=== PATIENT | male | born 1980 | race American Indian/Alaskan Native ===

== ENCOUNTER 2022-12-08 14:07 | Emergency (ER) | payer MEDICAID, OTHER ==
[2022-12-08 14:30] VITALS: BP 137/92; PULSE 125
[2022-12-08] MEDS ORDERED: Sodium Chloride 0.9% 10 ML Syringe FLUSH PRN ×2 (14:35)
[2022-12-08] MEDS ORDERED: diphenhydrAMINE 50 MG/ML SDV IVPUSH ONE (14:40)
[2022-12-08] MEDS ORDERED: Sodium Chloride 0.9% 1,000 ML IV ONE ×2 (14:41→14:42)
[2022-12-08] MEDS ORDERED: Cefepime 2 GM Vial IVPUSH ONE (14:42)
[2022-12-08 15:36] LABS: ANION GAP 11.1 mEq/L (7-13)
[2022-12-08] MEDS ORDERED: Acetaminophen 500 MG Tab PO ONE (16:25)
[2022-12-08] MEDS ORDERED: Sodium Chloride 0.9% 1,000 ML IV SCH (16:30)
== END 2022-12-08 16:47 ==
LOC: DL.ED 14:07
DX: S61.551D Open bite of right wrist, subsequent encounter (principal); L08.9 Local infection of the skin and subcutaneous tissue, unspecified; M25.511 Pain in right shoulder; R73.9 Hyperglycemia, unspecified; R74.01 Elevation of levels of liver transaminase levels; A41.9 Sepsis, unspecified organism; R65.20 Severe sepsis without septic shock; K72.00 Acute and subacute hepatic failure without coma; W55.01XD Bitten by cat, subsequent encounter
CPT/HCPCS: 36415; 80053; 83605; 85025; 86140; 87040; 96365; 96375; 99284-25; 99285; A9270-GY; J0692; J1200; J3370; J3490; J7030; J7040

== ENCOUNTER 2022-12-14 20:28 | Emergency (ER) | payer MEDICAID ==
[2022-12-14] MEDS ORDERED: Acetaminophen 500 MG Tab PO ONE (20:48)
[2022-12-14 20:49] VITALS: BP 136/106; PULSE 98
== END 2022-12-14 21:04 | disposition home or self-care (01) ==
LOC: DL.ED 20:28
DX: G89.18 Other acute postprocedural pain (principal); M25.531 Pain in right wrist; Z98.890 Other specified postprocedural states
CPT/HCPCS: 99282; 99283; A9270

== ENCOUNTER 2023-06-07 17:50 | Emergency (ER) | payer MEDICAID ==
[2023-06-07 18:02] VITALS: BP 155/99; PULSE 60
[2023-06-07] MEDS ORDERED: Ketorolac 30 MG/ML SDV IM ONE (18:19)
[2023-06-07] MEDS ORDERED: Take Home: traMADol 50 MG, 4 Tab Pack PO ONE (18:19)
== END 2023-06-07 18:29 | disposition home or self-care (01) ==
LOC: DL.ED 17:50
DX: R07.81 Pleurodynia (principal); W10.9XXA Fall (on) (from) unspecified stairs and steps, initial encounter
CPT/HCPCS: 71100-RT; 96372; 99282; 99283; A9270-GY; J1885

== ENCOUNTER 2023-09-06 21:54 | Emergency (ER) | payer MEDICAID ==
[2023-09-06 22:57] VITALS: BP 148/98; PULSE 95
[2023-09-06] MEDS ORDERED: Acetaminophen 500 MG Tab PO ONE (23:00)
== END 2023-09-06 23:26 | disposition home or self-care (01) ==
LOC: DL.ED 21:54
DX: S42.032A Displaced fracture of lateral end of left clavicle, initial encounter for closed fracture (principal); Z86.16 Personal history of COVID-19; X58.XXXA Exposure to other specified factors, initial encounter
CPT/HCPCS: 73030-LT; 99282; 99283; A9270-GY

== ENCOUNTER 2025-04-29 23:04 | Inpatient (IN) | payer MEDICAID ==
[2025-04-29 23:03] LABS: PLATELET COUNT,PLT 281 10^3/uL (150-450); RED BLOOD CELL COUNT 4.77 10^6/uL (4.6-6.2); WHITE BLOOD CELL COUNT,WBC 6.5 10^3/uL (5.0-10.0)
[~2025-04-29 23:04] MED LIST: Sodium Chloride 0.9% 10 ML Syringe FLUSH PRN
[2025-04-29] MEDS: Iopamidol 612 MG/ML 100 ML Bottle IVPUSH ONE (23:06)
[2025-04-29 23:09] LABS: BASOPHILS PERCENT AUTO 0.5 % (0.0-1.0); EOSINOPHILS PERCENT AUTO 4.9 % (1.0-3.0); LYMPHOCYTES PERCENT AUTO 46.0 % (20.5-50.1); MONOCYTES PERCENT AUTO 3.8 % (2-8); NEUTROPHILS PERCENT AUTO 44.8 % (42.2-75.2)
[2025-04-29 23:15] LABS: A/G RATIO 0.9; ALANINE AMINOTRANSFERASE,ALT 112 U/L (16-63); ASPARTATE AMNIOTRANSFERASE,AST 156 U/L (15-37); BILIRUBIN TOTAL 0.2 mg/dL (0.2-1.0); BLOOD UREA NITROGEN,BUN 19 mg/dL (7-18); CARBON DIOXIDE,CO2 28 mmol/L (21-32); CHLORIDE,CL 106 mmol/L (98-107); CREATININE 1.03 mg/dL (0.70-1.30); GLUCOSE RANDOM 135 mg/dL (70-99); POTASSIUM,K 3.1 mmol/L (3.5-5.1); PROTEIN TOTAL,TP 7.8 g/dL (6.4-8.2); SODIUM,NA 146 mmol/L (136-145)
[2025-04-29 23:16] LABS: ESTIMATED GFR 93 mL/min (>=60); ETHANOL BLOOD MEDICAL 317 mg/dL (0)
[2025-04-29 23:21] LABS: INR 0.9 (0.9-1.2); PTT,PARTIAL THROMBOPLSTIN TIME 21.7 SEC (22.0-34.0)
[2025-04-29 23:37] LABS: BAND PERCENT MAN 4 %; EOSINOPHILS PERCENT MAN 4 % (1-3); LYMPHOCYTES PERCENT MAN 46 % (20-50); MONOCYTES PERCENT MAN 2 % (2-8); SEG NEUTROPHILS PERCENT MAN 44 % (42-75)
[2025-04-30] MEDS: Potassium Chloride 10 MEQ Tab.ER PO ONE (00:44)
[2025-04-30 02:45] LABS: APPEARANCE,URINE CLEAR (CLEAR); GLUCOSE,URINE NEGATIVE (NEGATIVE); OCCULT BLOOD,URINE LARGE (NEGATIVE)
[2025-04-30 02:46] LABS: AMPHETAMINES,URINE NEGATIVE (NEGATIVE); BARBITURATES,URINE NEGATIVE (NEGATIVE); MDMA (ECSTASY), URINE NEGATIVE (NEGATIVE); METHAMPHETAMINES,URINE NEGATIVE (NEGATIVE); OPIATES,URINE NEGATIVE (NEGATIVE); OXYCODONE,URINE NEGATIVE (NEGATIVE); PHENCYCLIDINE,URINE NEGATIVE (NEGATIVE); TCA,URINE NEGATIVE (NEGATIVE)
[2025-04-30] MEDS: Ketorolac 30 MG/ML SDV IVPUSH ONE (05:44)
[2025-04-30] MEDS: Lidocaine 1% with EPINEPHrine 1:100,000 20 ML MDV INJECT ONE (05:44)
[2025-04-30] MEDS: Take Home: Acetaminophen/oxyCODONE 325-5 MG, 5 Tab Pack PO ONE (05:44)
[2025-04-30] MEDS: Take Home: Cyclobenzaprine 10 MG Tab, 4 Tab Pack PO ONE (05:45)
[2025-04-30] MEDS ORDERED: Metoprolol Tartrate 5 MG/5 ML SDV IVPUSH PRN (06:24)
[2025-04-30] MEDS ORDERED: hydrALAZINE 20 MG/ML SDV IVPUSH PRN (06:24)
[2025-04-30] MEDS ORDERED: Ondansetron 4 MG/2 ML SDV IVPUSH PRN (06:28)
[2025-04-30] MEDS ORDERED: Magnesium Hydroxide 400 MG/5 ML Susp 30 ML Cup PO PRN (06:28)
[2025-04-30] MEDS ORDERED: Flumazenil 0.1 MG/ML 5 ML MDV IVPUSH PRN (06:40)
[2025-04-30] MEDS: MVI, Adult with Vitamin K 10 ML, Folic Acid 1 MG, Thiamine 100 MG in Lactated Ringers 1... IV ONE (06:56)
[2025-04-30] MEDS: MVI, Adult with Vitamin K 10 ML, Folic Acid 1 MG, Thiamine 200 MG in Lactated Ringers 1... IV ONE (07:10)
[2025-04-30] MEDS: oxyCODONE ER 20 MG TAB.ER PO SCH (21:32)
[2025-04-30] MEDS: Sennosides/Docusate Sodium 50-8.6 MG Tab PO PRN (21:33)
[2025-04-30] MEDS: Multivitamins with Iron/Calcium/Folic Acid/Minerals Tab PO SCH (21:33)
[2025-05-01] MEDS: Ketorolac 30 MG/ML SDV IVPUSH PRN (06:37)
[2025-05-01 06:40] LABS: BASOPHILS PERCENT AUTO 0.3 % (0.0-1.0); EOSINOPHILS PERCENT AUTO 7.6 % (1.0-3.0); LYMPHOCYTES PERCENT AUTO 23.5 % (20.5-50.1); MONOCYTES PERCENT AUTO 5.7 % (2-8); NEUTROPHILS PERCENT AUTO 62.9 % (42.2-75.2); PLATELET COUNT,PLT 155 10^3/uL (150-450); RED BLOOD CELL COUNT 4.12 10^6/uL (4.6-6.2); WHITE BLOOD CELL COUNT,WBC 7.0 10^3/uL (5.0-10.0)
[2025-05-01 07:03] LABS: ALANINE AMINOTRANSFERASE,ALT 59.0 U/L (16-63); ASPARTATE AMNIOTRANSFERASE,AST 33.0 U/L (15-37); BILIRUBIN TOTAL 1.3 mg/dL (0.2-1.0); BLOOD UREA NITROGEN,BUN 13.0 mg/dL (7-18); CARBON DIOXIDE,CO2 31.0 mmol/L (21-32); CHLORIDE,CL 102.0 mmol/L (98-107); CREATININE 0.81 mg/dL (0.70-1.30); EST CRCL DRUG DOSING (CG) 114.94 mL/min; GLUCOSE RANDOM 99.0 mg/dL (70-99); POTASSIUM,K 3.7 mmol/L (3.5-5.1); PROTEIN TOTAL,TP 6.6 g/dL (6.4-8.2); SODIUM,NA 137.0 mmol/L (136-145)
[2025-05-01 07:34] LABS: A/G RATIO 0.83; ESTIMATED GFR 113.0 mL/min (>=60)
[2025-05-02 06:52] LABS: BASOPHILS PERCENT AUTO 0.3 % (0.0-1.0); EOSINOPHILS PERCENT AUTO 7.6 % (1.0-3.0); LYMPHOCYTES PERCENT AUTO 19.8 % (20.5-50.1); MONOCYTES PERCENT AUTO 6.5 % (2-8); NEUTROPHILS PERCENT AUTO 65.8 % (42.2-75.2); PLATELET COUNT,PLT 153 10^3/uL (150-450); RED BLOOD CELL COUNT 3.85 10^6/uL (4.6-6.2); WHITE BLOOD CELL COUNT,WBC 6.3 10^3/uL (5.0-10.0)
[2025-05-02 07:28] LABS: ALANINE AMINOTRANSFERASE,ALT 63.0 U/L (16-63); ASPARTATE AMNIOTRANSFERASE,AST 56.0 U/L (15-37); BILIRUBIN TOTAL 1.2 mg/dL (0.2-1.0); BLOOD UREA NITROGEN,BUN 12.0 mg/dL (7-18); CARBON DIOXIDE,CO2 30.0 mmol/L (21-32); CHLORIDE,CL 101.0 mmol/L (98-107); CREATININE 0.82 mg/dL (0.70-1.30); EST CRCL DRUG DOSING (CG) 113.54 mL/min; GLUCOSE RANDOM 95.0 mg/dL (70-99); POTASSIUM,K 4.0 mmol/L (3.5-5.1); PROTEIN TOTAL,TP 6.6 g/dL (6.4-8.2); SODIUM,NA 138.0 mmol/L (136-145)
[2025-05-02 07:35] LABS: A/G RATIO 0.78; ESTIMATED GFR 112.0 mL/min (>=60)
[2025-05-02 07:57] VITALS: BP 104/72; PULSE 77
== END 2025-05-02 11:00 | disposition home or self-care (01) | DRG 581 ==
LOC: DL.ED 23:04 → DL.MS 04-30 04:56 → OBSVTOIN 05-01 15:08
PROVIDERS: ADMIT Internal Medicine; ATTEND Internal Medicine
PROC: 0KQ00ZZ Repair Head Muscle, Open Approach (ICD-10-PCS; principal; 2025-04-29)
DX: S92.901A Unspecified fracture of right foot, initial encounter for closed fracture (principal); S01.91XA Laceration without foreign body of unspecified part of head, initial encounter; S93.335A Other dislocation of left foot, initial encounter; S01.81XA Laceration without foreign body of other part of head, initial encounter; F10.129 Alcohol abuse with intoxication, unspecified; R73.9 Hyperglycemia, unspecified; E87.6 Hypokalemia; S80.01XA Contusion of right knee, initial encounter; W13.1XXA Fall from, out of or through bridge, initial encounter; K70.10 Alcoholic hepatitis without ascites; H54.7 Unspecified visual loss; F12.929 Cannabis use, unspecified with intoxication, unspecified; Z79.899 Other long term (current) drug therapy; Z98.890 Other specified postprocedural states; Z86.16 Personal history of COVID-19
CPT/HCPCS: 12013; 36415; 70450; 71260; 72125; 73562-RT; 73590-RT; 73620-LT; 73620-RT; 74177; 80053; 80305-QW; 80307; 81003; 83735; 85025; 85610; 85730; 96365; 96366; 96372; 96375; 99284; 99285; A9270-GY; G0378; J1650; J1808; J1885; J3411; J3490; J7120; Q9967